=== PATIENT | female | born 1965 | race Caucasian/White ===

== ENCOUNTER 2018-04-17 00:13 | Observation (INO) ==
[2018-04-17] MEDS ORDERED: 0.9 % Sodium Chloride 1,000 ML IVC ONE ×3 (00:28→02:30)
--- NOTE | 2018-04-17 00:42 | Emergency Department Note ---
Disposition Clinical Impression: Syncope and collapse, Acute kidney injury Syncopal episodes Qualifiers: Syncope type: unspecified Qualified Code(s): R55 - Syncope and collapse Hypotension Qualifiers: Hypotension type: unspecified hypotension type Qualified Code(s): I95.9 - Hypotension, unspecified Disposition: Admitted As Inpatient Condition: Good Time of Disposition: 02:38 General Adult HPI - General Chief complaint: ED Syncope Stated complaint: syncope diarrhea Time Seen by Provider: 04/17/18 00:23 Source: family Limitations: no limitations Nursing Notes Reviewed: Yes Vital Signs Reviewed: Yes - History of Present Illness HPI Narrative: 52yo F complains of multiple episodes of syncope, diarrhea that had began earlier tonight. She does describe having headache yesterday has since resolved. She describes 3 syncopal episodes, and denies any known triggers. She describes near syncopal symptoms, she denies any recent illness, fever, chest pain, shortness of breath, abdominal pain , or any injuries. Pain Scale: 0 - Related Data Home Medications Medication Instructions Recorded Confirmed Fluticasone Propionate Nasal 2 spray NS DAILY 07/24/16 04/17/18 [Flonase] Gabapentin [Neurontin] 1,200 mg PO TID 07/24/16 04/17/18 Glucosamine/D3/Boswellia Camila 1 each PO DAILY 07/24/16 04/17/18 [Osteo Bi-Flex Tablet] Loratadine [Claritin] 10 mg PO DAILY 07/24/16 04/17/18 Montelukast [Singulair] 10 mg PO DAILY 07/24/16 04/17/18 Mv-Mn/FA/Vit K/Lycop/Lut/Coq10 1 each PO DAILY 07/24/16 04/17/18 [Daily Multivitamin Capsule] Zinc [Zinc Lozenge] 50 mg PO DAILY 07/24/16 04/17/18 Cetirizine HCl [Zyrtec] 10 mg PO DAILY 04/17/18 04/17/18 Ranitidine HCl [Zantac 75] 75 mg PO DAILY PRN 04/17/18 04/17/18 Allergies Allergy/AdvReac Type Severity Reaction Status Date / Time mold Allergy Sneezing Verified 04/17/18 05:06 All systems ED: reviewed and negative except as stated. Review of Systems: As Per HPI Constitutional: Denies: fever, chills Eyes: Denies: vision change ENT ED: Denies: throat pain Cardiovascular: Denies: chest pain, palpitations Respiratory: Denies: dyspnea Gastrointestinal: Denies: abdominal pain, nausea, vomiting Genitourinary: Denies: dysuria Musculoskeletal: Denies: back pain, neck pain Integumentary: Denies: rash Neurological: Reports: as per HPI Psychiatric: Reports: as per HPI Endocrine: Denies: fatigue Hematological/Lymphatic: Denies: easy bleeding Allergic/Immunologic: Denies: facial swelling Past Medical History - Past Medical History Medical history: Reports: other Psychiatric history: Reports: depression - Social History Smoking Status: Never smoker Smokeless Tobacco Status: No Alcohol use: Reports: none Drug use: Reports: none Physical Exam - General Limitations: no limitations General appearance: alert, in no apparent distress - Head Head exam: atraumatic, normocephalic - Eye Eye exam: Present: PERRL, EOMI. Absent: conjunctival injection - ENT ENT exam: normal oropharynx, mucous membranes moist - Neck Neck exam: Present: normal inspection, full ROM. Absent: lymphadenopathy - Chest Chest inspection: Present: normal inspection, symmetric chest wall rise - Respiratory Respiratory exam: Present: normal lung sounds bilaterally. Absent: respiratory distress - Cardiovascular Cardiovascular exam: Present: regular rate, normal rhythm - Abdominal Exam Abdominal exam: Present: soft, Non-Tender - Extremities Exam Extremities exam: Present: normal inspection, full ROM, normal capillary refill - Back Exam Back exam: Present: full ROM. Absent: CVA tenderness (R), CVA tenderness (L) - Neurological Exam Neurological exam: Present: alert - Expanded Neurological Exam Patient oriented to: Present: person Speech: Present: fluid speech Coma Scale Eye Opening: Spontaneous Coma Scale Motor Response: Obeys Commands Coma Scale Verbal Response: Oriented Coma Scale Total: 15 - Psychiatric Psychiatric exam: Present: normal affect, normal mood - Skin Skin exam: Present: warm, dry, intact, normal color. Absent: rash, cyanosis, diaphoresis Course Course Narrative: 52-year-old female arrives by private vehicle with complaint of recent couple episodes. Patient initially seen in triage area and provided history. Pt seen upon her arrival to exam room. Pt had difficulty arrsing from wheelchair to bed and had become nauseous. Discussed with Dr. Estrada who had face time with patient. Accuchek wnl. Plan will be for workup head ct. - Reevaluation(s) Reevaluation #1: EKG unremarkable, with no QT prolongation, Head CT negative. Potassium 3.1. Creatinine elevated. otherwise blood work appears unremarkable. Discussed with Dr. Estrada, who has advised for admission due to syncopal episodes, need for cardiac observation, will continue for fluids elevated creatinine. Time: 01:21 Reevaluation #2: Patient discussed with and accepted by hospitalist Dr. Juares. he frida requ ested normal saline 100ml/hr Time: 02:37 Vital Signs Temperature 99.5 F 04/17/18 00:17 Pulse Rate 82 04/17/18 00:17 Respiratory Rate 16 04/17/18 00:17 Blood Pressure 93/62 04/17/18 00:17 O2 Sat by Pulse Oximetry 92 04/17/18 00:17 Temperature 100.9 F H 04/17/18 06:29 Pulse Rate 85 04/17/18 06:29 Respiratory Rate 16 04/17/18 06:29 Blood Pressure 99/64 04/17/18 06:29 O2 Sat by Pulse Oximetry 93 04/17/18 06:29 Oxygen Delivery Oxygen Delivery Room Air Medical Decision Making - [facility] Narrative Medical decision making narrative: Patient was seen in conjunction with Dr. Estrada . Patient had presented with syncopal episodes. She had a head CT which was unremarkable. Chest x-ray unremarkable. She did have an elevated creatinine, and a slightly decreased potassium. Her blood pressure. He hypotensive. Fluids were ordered. Patient remained alert during her course here. Was afebrile at home and here in the department. Patient was offered admission and was in agreement. Patient accepted by hospitalist. Chest X-Ray 04/17/18 00:28 IMPRESSION: No acute cardiopulmonary disease. D/ / Emiliano Ramos MD / Emiliano Ramos MD Interpreting Provider: Emiliano Ramos MD Head CT 04/17/18 00:35 IMPRESSION: No acute intracranial abnormality. D/ / Emiliano Ramos MD / Emiliano Ramos MD Interpreting Provider: Emiliano Ramos MD Laboratory Tests 04/17/18 04/17/18 04/17/18 00:36 00:36 00:36 WBC 5.4 RBC 4.20 Hgb 12.7 Hct 38.4 MCV 91.4 MCH 30.2 MCHC 33.1 RDW 13.2 Plt Count 246 MPV 9.5 Immature Gran % 0.2 Seg Neutrophils % 62.4 Lymphocytes % 28.7 Monocytes % 8.3 Eosinophils % 0.0 Basophils % 0.4 Neutrophils # 3.4 Lymphocytes # 1.6 Monocytes # 0.5 Eosinophils # 0.0 Basophils # 0.0 PT 13.2 H INR 1.2 APTT 36.7 H Sodium 136 Potassium 3.1 L Chloride 103 Carbon Dioxide 21 L BUN 17 Creatinine 1.31 H Est GFR ( Amer) 52 L Est GFR (Non-Af Amer) 43 L BUN/Creatinine Ratio 13 Glucose 159 H Calculated Osmolality 287 Lactic Acid Calcium 8.7 Total Bilirubin Direct Bilirubin Indirect Bilirubin AST ALT Alkaline Phosphatase Troponin I Serum Total Protein Albumin Globulin Albumin/Globulin Ratio Urine Color Urine Clarity Urine pH Ur Specific [place] Urine Protein Urine Glucose (UA) Urine Ketones Urine Blood Urine Nitrite Urine Bilirubin Urine Urobilinogen Ur Leukocyte Esterase Urine Microscopic RBC Urine Microscopic WBC Ur Squamous Epith Cells Urine Bacteria Hyaline Casts Granular Casts Ur Culture Indicated? Urine Opiates Screen Ur Barbiturates Screen Ur Phencyclidine Scrn Ur Amphetamines Screen U Benzodiazepines Scrn Urine Cocaine Screen U Marijuana (THC) Screen Ur Drug Screen Interp Ethyl Alcohol < 10 04/17/18 04/17/18 04/17/18 00:36 01:22 01:22 WBC RBC Hgb Hct MCV MCH MCHC RDW Plt Count MPV Immature Gran % Seg Neutrophils % Lymphocytes % Monocytes % Eosinophils % Basophils % Neutrophils # Lymphocytes # Monocytes # Eosinophils # Basophils # PT INR APTT Sodium Potassium Chloride Carbon Dioxide BUN Creatinine Est GFR ( Amer) Est GFR (Non-Af Amer) BUN/Creatinine Ratio Glucose Calculated Osmolality Lactic Acid Calcium Total Bilirubin 0.3 Direct Bilirubin 0.1 Indirect Bilirubin 0.2 AST 42 H ALT 38 Alkaline Phosphatase 80 Troponin I < 0.03 Serum Total Protein 7.0 Albumin 4.2 Globulin 2.8 Albumin/Globulin Ratio 1.5 Urine Color Yellow Urine Clarity Cloudy A Urine pH 5.0 Ur Specific [place]more 1.029 H Urine Protein 100 H Urine Glucose (UA) Normal Urine Ketones Negative Urine Blood Negative Urine Nitrite Negative Urine Bilirubin Small H Urine Urobilinogen Normal Ur Leukocyte Esterase Negative Urine Microscopic RBC 0-3 Urine Microscopic WBC 5-15 H Ur Squamous Epith Cells Many H Urine Bacteria None Seen Hyaline Casts Moderate H Granular Casts Moderate H Ur Culture Indicated? NO Urine Opiates Screen Negative Ur Barbiturates Screen Negative Ur Phencyclidine Scrn Negative Ur Amphetamines Screen Negative U Benzodiazepines Scrn Negative Urine Cocaine Screen Negative U Marijuana (THC) Screen Negative Ur Drug Screen Interp See Below Ethyl Alcohol 04/17/18 02:45 WBC RBC Hgb Hct MCV MCH MCHC RDW Plt Count MPV Immature Gran % Seg Neutrophils % Lymphocytes % Monocytes % Eosinophils % Basophils % Neutrophils # Lymphocytes # Monocytes # Eosinophils # Basophils # PT INR APTT Sodium Potassium Chloride Carbon Dioxide BUN Creatinine Est GFR ( Amer) Est GFR (Non-Af Amer) BUN/Creatinine Ratio Glucose Calculated Osmolality Lactic Acid 0.7 Calcium Total Bilirubin Direct Bilirubin Indirect Bilirubin AST ALT Alkaline Phosphatase Troponin I Serum Total Protein Albumin Globulin Albumin/Globulin Ratio Urine Color Urine Clarity Urine pH Ur Specific [place] Urine Protein Urine Glucose (UA) Urine Ketones Urine Blood Urine Nitrite Urine Bilirubin Urine Urobilinogen Ur Leukocyte Esterase Urine Microscopic RBC Urine Microscopic WBC Ur Squamous Epith Cells Urine Bacteria Hyaline Casts Granular Casts Ur Culture Indicated? Urine Opiates Screen Ur Barbiturates Screen Ur Phencyclidine Scrn Ur Amphetamines Screen U Benzodiazepines Scrn Urine Cocaine Screen U Marijuana (THC) Screen Ur Drug Screen Interp Ethyl Alcohol - Lab Data Lab results reviewed: Yes I reviewed the patient's lab results. Result diagrams: 04/17/18 06:26 04/17/18 00:36 Lab Results 04/17/18 04/17/18 04/17/18 Range/Units 00:36 00:36 00:36 WBC 5.4 (4.3-11.1) K/mcL RBC 4.20 (3.82-4.97) M/mcL Hgb 12.7 (11.5-15.4) g/dL Hct 38.4 (35.3-44.9) % MCV 91.4 (83.0-100.0) fL MCH 30.2 (28.0-33.3) pg MCHC 33.1 (31.6-35.5) g/dL RDW 13.2 (11.5-14.5) % Plt Count 246 (140-400) K/mcL MPV 9.5 (9.4-12.4) fL Immature Gran % 0.2 (0-4) % Seg Neutrophils % 62.4 % Lymphocytes % 28.7 % Monocytes % 8.3 % Eosinophils % 0.0 % Basophils % 0.4 % Neutrophils # 3.4 (1.6-8.9) K/mcL Lymphocytes # 1.6 (0.6-4.6) K/mcL Monocytes # 0.5 (0.0-1.3) K/mcL Eosinophils # 0.0 (0.0-0.6) K/mcL Basophils # 0.0 (0.0-0.2) K/mcL PT 13.2 H (9.4-12.1) Seconds INR 1.2 APTT 36.7 H (26.0-36.0) Seconds Sodium 136 (136-145) mEq/L Potassium 3.1 L (3.5-5.1) mEq/L Chloride 103 (98-107) mEq/L Carbon Dioxide 21 L (23-29) mEq/L BUN 17 (6-20) mg/dL Creatinine 1.31 H (0.60-1.20) mg/dL Est GFR ( Amer) 52 L (> 60) Est GFR (Non-Af Amer) 43 L (> 60) BUN/Creatinine Ratio 13 (6-26) Glucose 159 H (70-105) mg/dL Calculated Osmolality 287 (280-300) Lactic Acid (0.5-2.2) mmol/L Calcium 8.7 (8.6-10.3) mg/dL Total Bilirubin (0.3-1.0) mg/dL Direct Bilirubin (0.0-0.2) mg/dL Indirect Bilirubin (0.0-1.2) mg/dL AST (13-39) Units/L ALT (7-52) Units/L Alkaline Phosphatase (34-104) Units/L Troponin I (< 0.04) ng/mL Serum Total Protein (6.4-8.9) g/dL Albumin (3.5-5.7) g/dL Globulin (2.4-3.5) g/dL Albumin/Globulin Ratio (1.1-2.2) Urine Color (Yellow) Urine Clarity (Clear) Urine pH (5.0-8.0) pH Units Ur Specific Elmore (1.010-1.025) Urine Protein (Neg-Trace) mg/dL Urine Glucose (UA) (Normal) mg/dL Urine Ketones (Negative) mg/dL Urine Blood (Negative) Urine Nitrite (Negative) Urine Bilirubin (Negative) Urine Urobilinogen (Normal) mg/dL Ur Leukocyte Esterase (Negative) Urine Microscopic RBC (0-3) per hpf Urine Microscopic WBC (0-3) per hpf Ur Squamous Epith Cells (None-Few) per lpf Urine Bacteria (None-Few) per hpf Hyaline Casts (None-Few) per lpf Granular Casts (None Seen) per lpf Ur Culture Indicated? (NO) Urine Opiates Screen (Dsdoqj=441) ng/mL Ur Barbiturates Screen (Snfryk=024) ng/mL Ur Phencyclidine Scrn (Cutoff=25) ng/mL Ur Amphetamines Screen (Npudux=0672) ng/mL U Benzodiazepines Scrn (Opxxwe=372) ng/mL Urine Cocaine Screen (Cutoff= 300) ng/mL U Marijuana (THC) Screen (Cutoff = 50) ng/mL Ur Drug Screen Interp Ethyl Alcohol < 10 (Less than 10) mg/dL 04/17/18 04/17/18 04/17/18 Range/Units 00:36 01:22 01:22 WBC (4.3-11.1) K/mcL RBC (3.82-4.97) M/mcL Hgb (11.5-15.4) g/dL Hct (35.3-44.9) % MCV (83.0-100.0) fL MCH (28.0-33.3) pg MCHC (31.6-35.5) g/dL RDW (11.5-14.5) % Plt Count (140-400) K/mcL MPV (9.4-12.4) fL Immature Gran % (0-4) % Seg Neutrophils % % Lymphocytes % % Monocytes % % Eosinophils % % Basophils % % Neutrophils # (1.6-8.9) K/mcL Lymphocytes # (0.6-4.6) K/mcL Monocytes # (0.0-1.3) K/mcL Eosinophils # (0.0-0.6) K/mcL Basophils # (0.0-0.2) K/mcL PT (9.4-12.1) Seconds INR APTT (26.0-36.0) Seconds Sodium (136-145) mEq/L Potassium (3.5-5.1) mEq/L Chloride (98-107) mEq/L Carbon Dioxide (23-29) mEq/L BUN (6-20) mg/dL Creatinine (0.60-1.20) mg/dL Est GFR ( Amer) (> 60) Est GFR (Non-Af Amer) (> 60) BUN/Creatinine Ratio (6-26) Glucose (70-105) mg/dL Calculated Osmolality (280-300) Lactic Acid (0.5-2.2) mmol/L Calcium (8.6-10.3) mg/dL Total Bilirubin 0.3 (0.3-1.0) mg/dL Direct Bilirubin 0.1 (0.0-0.2) mg/dL Indirect Bilirubin 0.2 (0.0-1.2) mg/dL AST 42 H (13-39) Units/L ALT 38 (7-52) Units/L Alkaline Phosphatase 80 (34-104) Units/L Troponin I < 0.03 (< 0.04) ng/mL Serum Total Protein 7.0 (6.4-8.9) g/dL Albumin 4.2 (3.5-5.7) g/dL Globulin 2.8 (2.4-3.5) g/dL Albumin/Globulin Ratio 1.5 (1.1-2.2) Urine Color Yellow (Yellow) Urine Clarity Cloudy A (Clear) Urine pH 5.0 (5.0-8.0) pH Units Ur Specific [place] 1.029 H (1.010-1.025) Urine Protein 100 H (Neg-Trace) mg/dL Urine Glucose (UA) Normal (Normal) mg/dL Urine Ketones Negative (Negative) mg/dL Urine Blood Negative (Negative) Urine Nitrite Negative (Negative) Urine Bilirubin Small H (Negative) Urine Urobilinogen Normal (Normal) mg/dL Ur Leukocyte Esterase Negative (Negative) Urine Microscopic RBC 0-3 (0-3) per hpf Urine Microscopic WBC 5-15 H (0-3) per hpf Ur Squamous Epith Cells Many H (None-Few) per lpf Urine Bacteria None Seen (None-Few) per hpf Hyaline Casts Moderate H (None-Few) per lpf Granular Casts Moderate H (None Seen) per lpf Ur Culture Indicated? NO (NO) Urine Opiates Screen Negative (Fhqgxv=986) ng/mL Ur Barbiturates Screen Negative (Qlrpgg=457) ng/mL Ur Phencyclidine Scrn Negative (Cutoff=25) ng/mL Ur Amphetamines Screen Negative (Xotoyp=5960) ng/mL U Benzodiazepines Scrn Negative (Ockqgl=682) ng/mL Urine Cocaine Screen Negative (Cutoff= 300) ng/mL U Marijuana (THC) Screen Negative (Cutoff = 50) ng/mL Ur Drug Screen Interp See Below Ethyl Alcohol (Less than 10) mg/dL 04/17/18 Range/Units 02:45 WBC (4.3-11.1) K/mcL RBC (3.82-4.97) M/mcL Hgb (11.5-15.4) g/dL Hct (35.3-44.9) % MCV (83.0-100.0) fL MCH (28.0-33.3) pg MCHC (31.6-35.5) g/dL RDW (11.5-14.5) % Plt Count (140-400) K/mcL MPV (9.4-12.4) fL Immature Gran % (0-4) % Seg Neutrophils % % Lymphocytes % % Monocytes % % Eosinophils % % Basophils % % Neutrophils # (1.6-8.9) K/mcL Lymphocytes # (0.6-4.6) K/mcL Monocytes # (0.0-1.3) K/mcL Eosinophils # (0.0-0.6) K/mcL Basophils # (0.0-0.2) K/mcL PT (9.4-12.1) Seconds INR APTT (26.0-36.0) Seconds Sodium (136-145) mEq/L Potassium (3.5-5.1) mEq/L Chloride (98-107) mEq/L Carbon Dioxide (23-29) mEq/L BUN (6-20) mg/dL Creatinine (0.60-1.20) mg/dL Est GFR ( Amer) (> 60) Est GFR (Non-Af Amer) (> 60) BUN/Creatinine Ratio (6-26) Glucose (70-105) mg/dL Calculated Osmolality (280-300) Lactic Acid 0.7 (0.5-2.2) mmol/L Calcium (8.6-10.3) mg/dL Total Bilirubin (0.3-1.0) mg/dL Direct Bilirubin (0.0-0.2) mg/dL Indirect Bilirubin (0.0-1.2) mg/dL AST (13-39) Units/L ALT (7-52) Units/L Alkaline Phosphatase (34-104) Units/L Troponin I (< 0.04) ng/mL Serum Total Protein (6.4-8.9) g/dL Albumin (3.5-5.7) g/dL Globulin (2.4-3.5) g/dL Albumin/Globulin Ratio (1.1-2.2) Urine Color (Yellow) Urine Clarity (Clear) Urine pH (5.0-8.0) pH Units Ur Specific [place] (1.010-1.025) Urine Protein (Neg-Trace) mg/dL Urine Glucose (UA) (Normal) mg/dL Urine Ketones (Negative) mg/dL Urine Blood (Negative) Urine Nitrite (Negative) Urine Bilirubin (Negative) Urine Urobilinogen (Normal) mg/dL Ur Leukocyte Esterase (Negative) Urine Microscopic RBC (0-3) per hpf Urine Microscopic WBC (0-3) per hpf Ur Squamous Epith Cells (None-Few) per lpf Urine Bacteria (None-Few) per hpf Hyaline Casts (None-Few) per lpf Granular Casts (None Seen) per lpf Ur Culture Indicated? (NO) Urine Opiates Screen (Qanxpu=957) ng/mL Ur Barbiturates Screen (Flkxpe=818) ng/mL Ur Phencyclidine Scrn (Cutoff=25) ng/mL Ur Amphetamines Screen (Ahsaej=2220) ng/mL U Benzodiazepines Scrn (Baplig=455) ng/mL Urine Cocaine Screen (Cutoff= 300) ng/mL U Marijuana (THC) Screen (Cutoff = 50) ng/mL Ur Drug Screen Interp Ethyl Alcohol (Less than 10) mg/dL - Radiology Data Radiology results reviewed: Yes I reviewed the patient's radiology results. - EKG Data EKG #1 EKG attestation: Yes I reviewed and interpreted this EKG. EKG shows normal: sinus rhythm Rate: normal Rhythm: NSR Caruthers/QRS: normal When compared to previous EKG there are: no significant changes Interpretation: no acute changes, nonspecific ST-T wave changes
[2018-04-17 00:54] LABS: Basophils % 0.4 %; Hematocrit 38.4 % (35.3-44.9); Hemoglobin 12.7 g/dL (11.5-15.4); Immature Granulocytes % 0.2 % (0-4); Lymphocytes # 1.6 K/mcL (0.6-4.6); Lymphocytes % 28.7 %; Mean Corpuscular HGB Conc 33.1 g/dL (31.6-35.5); Mean Corpuscular Hemoglobin 30.2 pg (28.0-33.3); Mean Corpuscular Volume 91.4 fL (83.0-100.0); Mean Platelet Volume 9.5 fL (9.4-12.4); Monocytes # 0.5 K/mcL (0.0-1.3); Monocytes % 8.3 %; Neutrophils # 3.4 K/mcL (1.6-8.9); Platelet Count 246 K/mcL (140-400); Red Cell Distribution Width 13.2 % (11.5-14.5); Segmented Neutrophils % 62.4 %
[2018-04-17 01:01] LABS: INR 1.2; Prothrombin Time 13.2 Seconds (9.4-12.1)
[2018-04-17 01:04] LABS: Activated Partial Thrombo Time 36.7 Seconds (26.0-36.0)
[2018-04-17 01:15] LABS: Alanine Aminotransferase 38 Units/L (7-52); Albumin 4.2 g/dL (3.5-5.7); Albumin/Globulin Ratio 1.5 (1.1-2.2); Alkaline Phosphatase 80 Units/L (34-104); Aspartate Amino Transferase 42 Units/L (13-39); Bilirubin,Direct 0.1 mg/dL (0.0-0.2); Bilirubin,Indirect 0.2 mg/dL (0.0-1.2); Bilirubin,Total 0.3 mg/dL (0.3-1.0); Globulin 2.8 g/dL (2.4-3.5); Troponin I < 0.03 ng/mL (< 0.04)
[2018-04-17 01:16] LABS: BUN/Creatinine Ratio 13 (6-26); Blood Urea Nitrogen 17 mg/dL (6-20); Calcium 8.7 mg/dL (8.6-10.3); Carbon Dioxide 21 mEq/L (23-29); Chloride 103 mEq/L (98-107); Ethanol < 10 mg/dL (Less than 10); Glucose 159 mg/dL (70-105); Osmolality,Calculated 287 (280-300); Potassium 3.1 mEq/L (3.5-5.1); Sodium 136 mEq/L (136-145); eGFR For Non-African Americans 43 (> 60)
[2018-04-17 01:43] LABS: Bilirubin,Urine Small (Negative); Blood,Urine Negative (Negative); Clarity,Urine Cloudy (Clear); Color,Urine Yellow (Yellow); Glucose,Urine (UA) Normal (Normal); Ketones,Urine Negative (Negative); Leukocyte Esterase,Urine Negative (Negative); Nitrite,Urine Negative (Negative); Protein,Urine 100 mg/dL (Neg-Trace); Specific Gravity,Urine 1.029 (1.010-1.025); Urobilinogen,Urine Normal (Normal)
[2018-04-17 01:46] LABS: Bacteria,Urine None Seen per hpf (None-Few); RBC,Urine 0-3 per hpf (0-3); Squamous Epithelial Cell,Urine Many per lpf (None-Few)
[2018-04-17 01:52] LABS: Amphetamine Screen,Urine Negative ng/mL (Cutoff=1000); Barbiturate Screen,Urine Negative ng/mL (Cutoff=200); Benzodiazepines Screen,Urine Negative ng/mL (Cutoff=200); Cannabinoid Screen,Urine Negative ng/mL (Cutoff = 50); Cocaine Screen,Urine Negative ng/mL (Cutoff= 300); Opiate Screen,Urine Negative ng/mL (Cutoff=300); Phencyclidine Screen,Urine Negative ng/mL (Cutoff=25)
[2018-04-17 02:03] LABS: Granular Casts,Urine Moderate per lpf (None Seen); Hyaline Casts,Urine Moderate per lpf (None-Few)
--- NOTE | 2018-04-17 02:40 | Emergency Department Note ---
Disposition Clinical Impression: Syncope and collapse, Acute kidney injury, Hypotension Disposition: Admitted As Inpatient Condition: Good Referrals: NONE,PCP [Primary Care Provider] - Forms: ED Satisfaction Letter General Adult HPI - General Chief complaint: ED Syncope Stated complaint: syncope diarrhea Time Seen by Provider: 04/17/18 00:23 Source: family Limitations: no limitations - History of Present Illness Pain Scale: 0 - Related Data Home Medications Medication Instructions Recorded Confirmed Acetaminophen [Tylenol Arthritis] 650 mg PO Q8H 07/24/16 07/24/16 Aspirin/Acetaminophen/Caffeine 1 each PO Q6H PRN 07/24/16 07/24/16 [Excedrin Extra Strength Caplet] Fluticasone Propionate Nasal 2 spray NS DAILY 07/24/16 07/24/16 [Flonase] Gabapentin [Neurontin] 1,200 mg PO TID 07/24/16 07/24/16 Ginkgo Biloba 40 mg PO DAILY 07/24/16 07/24/16 Glucosamine/D3/Boswellia Camila 1 each PO DAILY 07/24/16 07/24/16 [Osteo Bi-Flex Tablet] Loratadine [Claritin] 10 mg PO DAILY 07/24/16 07/24/16 Montelukast [Singulair] 10 mg PO DAILY 07/24/16 07/24/16 Mv-Mn/FA/Vit K/Lycop/Lut/Coq10 1 each PO DAILY 07/24/16 07/24/16 [Daily Multivitamin Capsule] Zinc [Zinc Lozenge] 50 mg PO DAILY 07/24/16 07/24/16 Allergies Allergy/AdvReac Type Severity Reaction Status Date / Time No Known Allergies Allergy Verified 07/24/16 08:37 Constitutional: Denies: fever, chills Eyes: Denies: vision change ENT ED: Denies: throat pain Cardiovascular: Denies: chest pain, palpitations Respiratory: Denies: dyspnea Gastrointestinal: Denies: abdominal pain, nausea, vomiting Genitourinary: Denies: dysuria Musculoskeletal: Denies: back pain, neck pain Integumentary: Denies: rash Neurological: Reports: as per HPI Psychiatric: Reports: as per HPI Endocrine: Denies: fatigue Hematological/Lymphatic: Denies: easy bleeding Allergic/Immunologic: Denies: facial swelling Past Medical History - Past Medical History Medical history: Reports: other Psychiatric history: Reports: depression - Social History Smoking Status: Never smoker Smokeless Tobacco Status: No Alcohol use: Reports: none Drug use: Reports: none Physical Exam - General Limitations: no limitations General appearance: alert, in no apparent distress Course Vital Signs Temperature 99.5 F 04/17/18 00:17 Pulse Rate 82 04/17/18 00:17 Respiratory Rate 16 04/17/18 00:17 Blood Pressure 93/62 04/17/18 00:17 O2 Sat by Pulse Oximetry 92 04/17/18 00:17 Temperature 99.5 F 04/17/18 00:17 Pulse Rate 82 04/17/18 00:17 Respiratory Rate 16 04/17/18 00:17 Blood Pressure 93/62 04/17/18 00:17 O2 Sat by Pulse Oximetry 92 04/17/18 00:17 Oxygen Delivery Oxygen Delivery Room Air Medical Decision Making - Medical Records Medical records reviewed: Yes I reviewed the patient's medical records. - Lab Data Lab results reviewed: Yes I reviewed the patient's lab results. Result diagrams: 04/17/18 00:36 04/17/18 00:36 Lab Results 04/17/18 04/17/18 04/17/18 Range/Units 00:36 00:36 00:36 WBC 5.4 (4.3-11.1) K/mcL RBC 4.20 (3.82-4.97) M/mcL Hgb 12.7 (11.5-15.4) g/dL Hct 38.4 (35.3-44.9) % MCV 91.4 (83.0-100.0) fL MCH 30.2 (28.0-33.3) pg MCHC 33.1 (31.6-35.5) g/dL RDW 13.2 (11.5-14.5) % Plt Count 246 (140-400) K/mcL MPV 9.5 (9.4-12.4) fL Immature Gran % 0.2 (0-4) % Seg Neutrophils % 62.4 % Lymphocytes % 28.7 % Monocytes % 8.3 % Eosinophils % 0.0 % Basophils % 0.4 % Neutrophils # 3.4 (1.6-8.9) K/mcL Lymphocytes # 1.6 (0.6-4.6) K/mcL Monocytes # 0.5 (0.0-1.3) K/mcL Eosinophils # 0.0 (0.0-0.6) K/mcL Basophils # 0.0 (0.0-0.2) K/mcL PT 13.2 H (9.4-12.1) Seconds INR 1.2 APTT 36.7 H (26.0-36.0) Seconds Sodium 136 (136-145) mEq/L Potassium 3.1 L (3.5-5.1) mEq/L Chloride 103 (98-107) mEq/L Carbon Dioxide 21 L (23-29) mEq/L BUN 17 (6-20) mg/dL Creatinine 1.31 H (0.60-1.20) mg/dL Est GFR ( Amer) 52 L (> 60) Est GFR (Non-Af Amer) 43 L (> 60) BUN/Creatinine Ratio 13 (6-26) Glucose 159 H (70-105) mg/dL Calculated Osmolality 287 (280-300) Calcium 8.7 (8.6-10.3) mg/dL Total Bilirubin (0.3-1.0) mg/dL Direct Bilirubin (0.0-0.2) mg/dL Indirect Bilirubin (0.0-1.2) mg/dL AST (13-39) Units/L ALT (7-52) Units/L Alkaline Phosphatase (34-104) Units/L Troponin I (< 0.04) ng/mL Serum Total Protein (6.4-8.9) g/dL Albumin (3.5-5.7) g/dL Globulin (2.4-3.5) g/dL Albumin/Globulin Ratio (1.1-2.2) Urine Color (Yellow) Urine Clarity (Clear) Urine pH (5.0-8.0) pH Units Ur Specific [place] (1.010-1.025) Urine Protein (Neg-Trace) mg/dL Urine Glucose (UA) (Normal) mg/dL Urine Ketones (Negative) mg/dL Urine Blood (Negative) Urine Nitrite (Negative) Urine Bilirubin (Negative) Urine Urobilinogen (Normal) mg/dL Ur Leukocyte Esterase (Negative) Urine Microscopic RBC (0-3) per hpf Urine Microscopic WBC (0-3) per hpf Ur Squamous Epith Cells (None-Few) per lpf Urine Bacteria (None-Few) per hpf Hyaline Casts (None-Few) per lpf Granular Casts (None Seen) per lpf Ur Culture Indicated? (NO) Urine Opiates Screen (Encvwz=523) ng/mL Ur Barbiturates Screen (Ehmfjh=207) ng/mL Ur Phencyclidine Scrn (Cutoff=25) ng/mL Ur Amphetamines Screen (Qbtnzz=3631) ng/mL U Benzodiazepines Scrn (Xvkgns=021) ng/mL Urine Cocaine Screen (Cutoff= 300) ng/mL U Marijuana (THC) Screen (Cutoff = 50) ng/mL Ur Drug Screen Interp Ethyl Alcohol < 10 (Less than 10) mg/dL 04/17/18 04/17/18 04/17/18 Range/Units 00:36 01:22 01:22 WBC (4.3-11.1) K/mcL RBC (3.82-4.97) M/mcL Hgb (11.5-15.4) g/dL Hct (35.3-44.9) % MCV (83.0-100.0) fL MCH (28.0-33.3) pg MCHC (31.6-35.5) g/dL RDW (11.5-14.5) % Plt Count (140-400) K/mcL MPV (9.4-12.4) fL Immature Gran % (0-4) % Seg Neutrophils % % Lymphocytes % % Monocytes % % Eosinophils % % Basophils % % Neutrophils # (1.6-8.9) K/mcL Lymphocytes # (0.6-4.6) K/mcL Monocytes # (0.0-1.3) K/mcL Eosinophils # (0.0-0.6) K/mcL Basophils # (0.0-0.2) K/mcL PT (9.4-12.1) Seconds INR APTT (26.0-36.0) Seconds Sodium (136-145) mEq/L Potassium (3.5-5.1) mEq/L Chloride (98-107) mEq/L Carbon Dioxide (23-29) mEq/L BUN (6-20) mg/dL Creatinine (0.60-1.20) mg/dL Est GFR ( Amer) (> 60) Est GFR (Non-Af Amer) (> 60) BUN/Creatinine Ratio (6-26) Glucose (70-105) mg/dL Calculated Osmolality (280-300) Calcium (8.6-10.3) mg/dL Total Bilirubin 0.3 (0.3-1.0) mg/dL Direct Bilirubin 0.1 (0.0-0.2) mg/dL Indirect Bilirubin 0.2 (0.0-1.2) mg/dL AST 42 H (13-39) Units/L ALT 38 (7-52) Units/L Alkaline Phosphatase 80 (34-104) Units/L Troponin I < 0.03 (< 0.04) ng/mL Serum Total Protein 7.0 (6.4-8.9) g/dL Albumin 4.2 (3.5-5.7) g/dL Globulin 2.8 (2.4-3.5) g/dL Albumin/Globulin Ratio 1.5 (1.1-2.2) Urine Color Yellow (Yellow) Urine Clarity Cloudy A (Clear) Urine pH 5.0 (5.0-8.0) pH Units Ur Specific [place] 1.029 H (1.010-1.025) Urine Protein 100 H (Neg-Trace) mg/dL Urine Glucose (UA) Normal (Normal) mg/dL Urine Ketones Negative (Negative) mg/dL Urine Blood Negative (Negative) Urine Nitrite Negative (Negative) Urine Bilirubin Small H (Negative) Urine Urobilinogen Normal (Normal) mg/dL Ur Leukocyte Esterase Negative (Negative) Urine Microscopic RBC 0-3 (0-3) per hpf Urine Microscopic WBC 5-15 H (0-3) per hpf Ur Squamous Epith Cells Many H (None-Few) per lpf Urine Bacteria None Seen (None-Few) per hpf Hyaline Casts Moderate H (None-Few) per lpf Granular Casts Moderate H (None Seen) per lpf Ur Culture Indicated? NO (NO) Urine Opiates Screen Negative (Cwoosu=077) ng/mL Ur Barbiturates Screen Negative (Izvskn=347) ng/mL Ur Phencyclidine Scrn Negative (Cutoff=25) ng/mL Ur Amphetamines Screen Negative (Jchbse=6640) ng/mL U Benzodiazepines Scrn Negative (Hnhrbl=167) ng/mL Urine Cocaine Screen Negative (Cutoff= 300) ng/mL U Marijuana (THC) Screen Negative (Cutoff = 50) ng/mL Ur Drug Screen Interp See Below Ethyl Alcohol (Less than 10) mg/dL - Radiology Data Radiology results reviewed: Yes I reviewed the patient's radiology results. Critical Care Time Critical Care Time: Yes Total Critical Care Time: 35 Attestation: Care time of 35 minutes spent in medical management of syncope associated with hypertension. Attestation Statement - Attestation Attestation: I have personally performed a face to face evaluation on this patient. I have reviewed and agree with the care plan. History and Exam by me shows: 52-year-old female presented to the emergency room for syncope. She has had to 3 bouts of syncope today. Yesterday she woke up had a horrible headache. She denies any history of headaches. She denies trauma. She states that she has had no headaches today. She denies chest pain. No shortness breath. No abdominal pain. She has had a little bit of loose stool. She upon arrival had 2 bouts of vomiting in the ER. Apparently she had had a syncopal episode at home earlier this evening as well. She denies any new medications. No history of this in the past. Workup in the ER did not reveal any significant findings. She was slightly dry on her renal function. We have ordered IV fluids for this. Her CT of the brain was negative. She was given Zofran. IV fluids. Patient needs to be admitted for syncope workup. Her cardiac evaluation from an ER standpoint showed a normal enzyme as well as normal EKG. Her chest x-ray was also unremarkable. Case was discussed with the hospitalist who accepted the patient.
[2018-04-17] MEDS ORDERED: Naloxone 0.4 MG/ML INJ IVP PRN (05:40)
[2018-04-17] MEDS: 0.9 % Sodium Chloride 1,000 ML IVC SCH ×2 (06:18→12:38)
--- NOTE | 2018-04-17 06:28 | Internal Med History&Physical ---
Date of Encounter: 04/17/18 Time of Encounter: 05:25 Internal Medicine - H&P: HPI Chief complaint: Syncope Admitted From: Emergency Dept Plans for Post Hospital Care: Home History of present illness: Ms. Donahue is a 52 year old female Patient presented to the emergency room after multiple episodes of syncope and diarrhea. She states that her symptoms began about 24 hours ago, she felt dizzy while she was putting her children to bed. She then had an episode of syncope while on the toilet. She says that she had stood up then passed out and landed hard enough to break the toilet tank cover. She then walked out the bathroom and had a syncope episode, passing out onto the ground. Her then stated that she had multiple other syncope episodes prior to arrival to the ER. She had a further syncope episode while in the emergency room. In the emergency room patient's initial blood pressure was 93/62 and temperature was 99.5. Patient's CBC was within normal limits. Patient's BMP showed a potassium of 3.1, and a creatinine of 1.31. Patient's glucose was 159. Initial lactate was 0.7, troponin was undetectable, and INR was 1.2. Patient's urine tox screen was negative, and urinalysis showed small early Stein, 5-15 white blood cells but negative the leukocyte esterase and negative nitrite. Patient's EKG was unremarkable. She was given a total of 3 L of normal saline, then started on maintenance fluids. She was also given 40 mEq of potassium and sent to medical floor for further management. Upon my evaluation, patient is resting comfortably in a hospital bed in no acute distress. She denies chest pain, abdominal pain, nausea, vomiting, diarrhea and constipation. Chest denies shortness of breath. She did have one episode of diarrhea prior to her arrival, but nothing since. She states that she has had a cough the last couple of days and her granddaughter had the flu last week. She did not receive the flu shot, and states that she has never received a flu shot ever in her life. Past Med Surg Social Fam HX - Past Medical History Medical history: other Additional medical history: Trigeminal neuralgia Psychiatric history: depression - Past Surgical History Additional surgical history: D&C. Aldiana procedure - Social History Smoking Status: Never smoker Smokeless Tobacco Status: No Alcohol use: none Drug use: none - Family History Mother Living Status: Cause of : internal bleed Hx Family Cardiac Disorders: Yes (CHF) Hx Family Respiratory Disorders: Yes (emphysema) Hx Family Endocrine Disorder: Yes (DM) Father Living Status: Cause of : lung disease, asbestos Internal Medicine - H&P: Meds Fluticasone Propionate Nasal [Flonase] 2 spray NS DAILY 07/24/16 [History] Gabapentin [Neurontin] 1,200 mg PO TID 07/24/16 [History] Glucosamine/D3/Boswellia Camila [Osteo Bi-Flex Tablet] 1 each PO DAILY 07/24/16 [History] Loratadine [Claritin] 10 mg PO DAILY 07/24/16 [History] Montelukast [Singulair] 10 mg PO DAILY 07/24/16 [History] Mv-Mn/FA/Vit K/Lycop/Lut/Coq10 [Daily Multivitamin Capsule] 1 each PO DAILY 07/24/16 [History] Zinc [Zinc Lozenge] 50 mg PO DAILY 07/24/16 [History] Cetirizine HCl [Zyrtec] 10 mg PO DAILY 04/17/18 [History] Ranitidine HCl [Zantac 75] 75 mg PO DAILY PRN 04/17/18 [History] Allergy/AdvReac Type Severity Reaction Status Date / Time mold Allergy Sneezing Verified 04/17/18 05:06 All Systems PM: A 10-system review of systems was performed and is negative for pertinent findings except as documented above in the HPI. - Constitutional Vitals: Temp Pulse Resp BP Pulse Ox 99.6 F 90 16 100/67 93 04/17/18 04:23 04/17/18 05:52 04/17/18 04:23 04/17/18 05:52 04/17/18 04:23 General appearance: Present: cooperative, A&O X 3, pleasant, no acute distress, answers questions appropriately Exam: - - Head Head exam: Present: normal inspection - Eye Eye exam: Present: EOMI, normal appearance - Respiratory Respiratory exam: Present: CTAB. Absent: rales, respiratory distress, rhonchi, wheezes - Cardiovascular Cardiovascular exam: Present: RRR. Absent: diastolic murmur, systolic murmur - GI/Abdominal GI/Abdominal exam: Present: normal bowel sounds, soft. Absent: tenderness - Extremities Exam Extremities exam: Present: warm, radial pulses palpable and symmetrical. Absent: pedal edema, tenderness - Neurological Exam Neurological exam: Present: alert, CN II-XII intact, no focal deficits, strengths equal and symetr throughout. Absent: altered, motor sensory deficit, facial droop, speech deficit - Skin Skin exam: Present: dry, normal color, warm Internal Med - H&P Results - Labs CBC & Chem 7: 04/17/18 00:36 04/17/18 00:36 Labs: Short CBC 04/17/18 Range/Units 00:36 WBC 5.4 (4.3-11.1) K/mcL Hgb 12.7 (11.5-15.4) g/dL Hct 38.4 (35.3-44.9) % Plt Count 246 (140-400) K/mcL Neutrophils # 3.4 (1.6-8.9) K/mcL BMP 04/17/18 00:36 Sodium 136 Potassium 3.1 L Chloride 103 Carbon Dioxide 21 L BUN 17 Creatinine 1.31 H Glucose 159 H Calcium 8.7 Cardiac Enzymes 04/17/18 Range/Units 00:36 Troponin I < 0.03 (< 0.04) ng/mL Liver Function 04/17/18 Range/Units 00:36 Total Bilirubin 0.3 (0.3-1.0) mg/dL Direct Bilirubin 0.1 (0.0-0.2) mg/dL AST 42 H (13-39) Units/L ALT 38 (7-52) Units/L Alkaline Phosphatase 80 (34-104) Units/L Albumin 4.2 (3.5-5.7) g/dL Urine 04/17/18 Range/Units 01:22 Urine Color Yellow (Yellow) Urine Clarity Cloudy A (Clear) Urine pH 5.0 (5.0-8.0) pH Units Ur Specific [place] 1.029 H (1.010-1.025) Urine Protein 100 H (Neg-Trace) mg/dL Urine Glucose (UA) Normal (Normal) mg/dL - Impressions ITS Impressions Chest X-Ray 04/17/18 00:28 IMPRESSION: No acute cardiopulmonary disease. D/ / Emiliano Ramos MD / Emiliano Ramos MD Interpreting Provider: Emiliano Ramos MD Head CT 04/17/18 00:35 IMPRESSION: No acute intracranial abnormality. D/ / Emiliano Ramos MD / Emiliano Ramos MD Interpreting Provider: Emiliano Ramos MD - Assessment and plan (1) Syncope and collapse Current Visit: Yes Status: Acute Assessment and plan: Patient had multiple episodes of syncope while at home. Patients never had episodes like this recently but states that along time ago she did have some syncope episodes when she was a child. Symptoms could be related to vasovagal, hypotension or possibly flu. Patient received 3 L of normal saline in the ER, and during exam after sitting the patient not in the hospital bed she did not become dizzy with postural changes. Orthostatic vital signs Echocardiogram Neuroscientist PT OT evaluation Can consider neurology consultation if symptoms continue. (2) Hypotension Current Visit: Yes Status: Acute Assessment and plan: Blood pressures have been stable in the high 90's after 3 L of fluid. Continue to monitor blood pressures Follow-up orthostatic blood pressures Follow-up flu swab Continue IV maintenance fluids, and oral hydration Qualifiers: Hypotension type: unspecified hypotension type Qualified Code(s): I95.9 - Hypotension, unspecified (3) Acute kidney injury Current Visit: Yes Status: Acute Assessment and plan: Slightly elevated creatinine of 1.31. Likely secondary to hypovolemia. Patient has no history of kidney problems. Repeat labs in the morning (4) Cough Current Visit: Yes Status: Acute Assessment and plan: Has had a cough, nonproductive. She does have exposure to flu, stating that her granddaughter had the flu last week. Follow-up flu swab Mucinex when necessary (5) Exposure to the flu Current Visit: Yes Status: Acute Assessment and plan: Patient exposed to flu, stating her granddaughter had it last week. Follow-up flu swab Tamiflu if indicated (6) DVT prophylaxis Current Visit: Yes Status: Acute Assessment and plan: Subcutaneous heparin - Time Spent With Patient Total time spent is greater than 50% in coordination of care (as documented) at patient's floor/unit and/or counseling patient: Greater than 35 minutes
[2018-04-17] MEDS ORDERED: Acetaminophen 325 MG TABLET PO PRN (06:32)
[2018-04-17 07:01] LABS: Hematocrit 34.2 % (35.3-44.9); Mean Corpuscular HGB Conc 32.2 g/dL (31.6-35.5); Mean Corpuscular Hemoglobin 30.1 pg (28.0-33.3); Mean Corpuscular Volume 93.4 fL (83.0-100.0); Mean Platelet Volume 9.7 fL (9.4-12.4); Platelet Count 192 K/mcL (140-400); Red Blood Count 3.66 M/mcL (3.82-4.97); Red Cell Distribution Width 13.2 % (11.5-14.5)
[2018-04-17 07:28] LABS: BUN/Creatinine Ratio 14 (6-26); Blood Urea Nitrogen 13 mg/dL (6-20); Calcium 7.6 mg/dL (8.6-10.3); Carbon Dioxide 22 mEq/L (23-29); Chloride 111 mEq/L (98-107); Glucose 107 mg/dL (70-105); Osmolality,Calculated 287 (280-300); Potassium 3.9 mEq/L (3.5-5.1); Sodium 138 mEq/L (136-145); eGFR For Non-African Americans > 60 (> 60)
[2018-04-17] MEDS ORDERED: Famotidine 20 MG TABLET PO PRN (07:41)
[2018-04-17] MEDS ORDERED: BOSWELLIA SERRA PO SCH (09:00)
[2018-04-17] MEDS ORDERED: GLUCOSAMINE PO SCH (09:00)
[2018-04-17] MEDS ORDERED: Fluticasone Propionate Nasal 50 MCG/SPRAY BOTTLE NS SCH (09:00)
[2018-04-17] MEDS ORDERED: D3 PO SCH (09:00)
[2018-04-17] MEDS ORDERED: Multivit/Ca/Min/Fe/FA 1 TAB TABLET PO SCH (09:00)
[2018-04-17] MEDS: Gabapentin 400 MG CAPSULE PO SCH ×2 (10:07→15:10)
[2018-04-17 10:56] LABS: Thyroid Stimulating Hormone 0.449 mcIU/mL (0.340-5.600)
[2018-04-17 12:12] VITALS: BP 105/68
--- NOTE | 2018-04-17 13:02 | Electrocardiograph Report ---
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
--- NOTE | 2018-04-17 15:26 | Discharge Summary ---
- NOTES TO OUTPATIENT PROVIDER Notes to Outpatient Provider: f/u with PCP within a week. Orders not resulted at time of discharge: Pending orders 04/17/18 07:43 EV carotid duplex imaging BI Routine 04/18/18 04:00 Cortisol,Random AM 0400 Date of Encounter: 04/17/18 Time of Encounter: 15:24 - Discharge Diagnosis (1) Flu Priority: Primary Status: Acute (2) Syncope and collapse Priority: Primary Status: Acute (3) Acute kidney injury Priority: Primary Status: Acute (4) Hypotension Priority: Primary Status: Acute Qualifiers: Hypotension type: idiopathic hypotension Qualified Code(s): I95.0 - Idiopathic hypotension (5) DVT prophylaxis Priority: Primary Status: Acute Hospital course: Ms. Donahue is a 52 year old female Patient presented to the emergency room after multiple episodes of syncope and diarrhea. She states that her symptoms began about 24 hours ago, she felt dizzy while she was putting her children to bed. She then had an episode of syncope while on the toilet. She says that she had stood up then passed out and landed hard enough to break the toilet tank cover. She then walked out the bathroom and had a syncope episode, passing out onto the ground. Her then stated that she had multiple other syncope episodes prior to arrival to the ER. She had a further syncope episode while in the emergency room. In the emergency room patient's initial blood pressure was 93/62 and temperature was 99.5. Patient's CBC was within normal limits. Patient's BMP showed a potassium of 3.1, and a creatinine of 1.31. Patient's glucose was 159. Initial lactate was 0.7, troponin was undetectable, and INR was 1.2. Patient's urine tox screen was negative, and urinalysis showed small early Stein, 5-15 white blood cells but negative the leukocyte esterase and negative nitrite. Patient's EKG was unremarkable. She was given a total of 3 L of normal saline, then started on maintenance fluids. She was also given 40 mEq of potassium and sent to medical floor for further management. Her dizziness and syncope abated after IVF. BP normalized. Cr back to baseline. ECHO showed normal EF without obvious valvular disease. A carotid doppler was ordered. Later today, pt stated that she felt much better and wanted to go home and she does not want to miss tomorrow's work. She and family have ambulated in the hallway and she feels fine. Pt was instructed the risk of leaving hospital too soon without a definite diagnosis and uncompleted test. She was instructed to return and seek medical assistance if symptoms recur or worsen. Discharge discussed with: patient Time spent discussing smoking cessation with patient: more than 10 minutes - Time Spent with Patient Total time spent providing and/or coordinating discharge services: 45 mins. Greater than 30 minutes - Discharge Medications Prescriptions: Continue Loratadine [Claritin] 10 mg PO DAILY Montelukast [Singulair] 10 mg PO DAILY Zinc [Zinc Lozenge] 50 mg PO DAILY Mv-Mn/FA/Vit K/Lycop/Lut/Coq10 [Daily Multivitamin Capsule] 1 each PO DAILY Glucosamine/D3/Boswellia Camila [Osteo Bi-Flex Tablet] 1 each PO DAILY Gabapentin [Neurontin] 1,200 mg PO TID Fluticasone Propionate Nasal [Flonase] 2 spray NS DAILY Cetirizine HCl [Zyrtec] 10 mg PO DAILY Ranitidine HCl [Zantac 75] 75 mg PO DAILY PRN PRN Reason: acid reflux Home Medications: Fluticasone Propionate Nasal [Flonase] 2 spray NS DAILY 07/24/16 [History] Gabapentin [Neurontin] 1,200 mg PO TID 07/24/16 [History] Glucosamine/D3/Boswellia Camila [Osteo Bi-Flex Tablet] 1 each PO DAILY 07/24/16 [History] Loratadine [Claritin] 10 mg PO DAILY 07/24/16 [History] Montelukast [Singulair] 10 mg PO DAILY 07/24/16 [History] Mv-Mn/FA/Vit K/Lycop/Lut/Coq10 [Daily Multivitamin Capsule] 1 each PO DAILY 07/24/16 [History] Zinc [Zinc Lozenge] 50 mg PO DAILY 07/24/16 [History] Cetirizine HCl [Zyrtec] 10 mg PO DAILY 04/17/18 [History] Ranitidine HCl [Zantac 75] 75 mg PO DAILY PRN 04/17/18 [History] Allergies/Adverse Reactions: Allergy/AdvReac Type Severity Reaction Status Date / Time mold Allergy Sneezing Verified 04/17/18 05:06 Date of admission: 04/17/18 02:52 Primary care physician: PCP NONE Consults: 04/17/18 05:46 Consult to Occupational Therapy [CONS] Routine Comment: Evaluate, develop and implement POC Reason for Consult: Patient has had multiple episodes of syncope at home. Does patient have active BEDREST order?: No Is patient medically & hemodynamically stable?: Yes Consult to Physical Therapy [CONS] Routine Comment: Evaluate, develop and implement POC Reason for Consult: Patient has had multiple episodes of syncope at home. Does patient have active BEDREST order?: No Is patient medically & hemodynamically stable?: Yes Anticipated date of discharge: 04/17/18 - Constitutional Vitals: Temp Pulse Resp BP Pulse Ox 98.6 F 67 16 105/68 93 04/17/18 12:07 04/17/18 12:07 04/17/18 12:07 04/17/18 12:07 04/17/18 12:07 General appearance: Present: cooperative, A&O X 3, pleasant, no acute distress, answers questions appropriately Exam: PHYSICAL EXAMINATION: GENERAL APPEARANCE: The patient is alert, oriented and in no acute distress. HEENT: Head is normocephalic. The sinuses are nontender. Pupils are equal and reactive. The nares are patent. Oropharynx clear without lesions. NECK: Supple without lymphadenopathy. HEART: Regular rate and rhythm. LUNGS: No crackles or wheezes are heard. ABDOMEN: Soft, nontender, nondistended with good bowel sounds heard. Inguinal area is normal. EXTREMITIES: Without cyanosis, clubbing or edema. NEUROLOGICAL: Gross nonfocal. SKIN: Warm and dry without any rash. - Patient Status Disposition: Home, Self-Care Condition: Good Functional capacity at discharge: independent ambulation Overall status at discharge: patient is progressing back to baseline - Discharge Instructions Follow Up With: NONE,PCP [Primary Care Provider] - - Diet and Activity Activity: increase activity as tolerated Diet: advance to your usual diet
[2018-04-17] MEDS ORDERED: *HR* Heparin 5,000 UNIT/ML VIAL SQ SCH (18:00)
== END 2018-04-17 16:20 | disposition home or self-care (01) ==
LOC: EMEROOARM 00:13 → 3BNU 00:13
PROVIDERS: ADMIT Pediatrics; ATTEND Pediatrics